=== PATIENT | female | born 1970 | race Caucasian/White ===

== ENCOUNTER → 2020-01-02 | Outpatient (CLI) | payer OTHER ==
[~2020-01-02] MED LIST: BLOOD PRESSURE; CITA20 PO; CODGUAEL PO; HYDR1TAB94 PO; LISINOPRIL; Percocet 5-3251 EACH PO; URSO300 PO; Zithromax250 MG PO
== END | disposition home or self-care (01) ==
LOC: LAB 13:53 → LAB SHORT 13:53
DX: L82.1 Other seborrheic keratosis (principal)
CPT/HCPCS: 88305

== ENCOUNTER 2020-02-04 15:03 | Inpatient (IN) | payer OTHER ==
[~2020-02-04] VITALS: Ht 154.9 cm; Wt 85.1 kg
[2020-02-05] MEDS ORDERED: Prinivil10 MG PO (11:33)
[2020-02-05] MEDS ORDERED: CITA20 PO (11:33)
[2020-02-05] MEDS ORDERED: VITAMIN B125000 MC1 PO (11:33)
[2020-02-05] MEDS ORDERED: CALCIUM 600 +1 EA11 PO (11:33)
[2020-02-05] MEDS ORDERED: FERSU300 PO (11:34)
[2020-02-05] MEDS ORDERED: NECON 1/35 PO (11:34)
[2020-02-05] MEDS ORDERED: VITAMIN D310 MC4 PO (11:43)
[2020-02-05] MEDS ORDERED: CENTRUM SILVER1 EAC2 PO (11:43)
--- NOTE | 2020-02-07 14:59 | NUR ---
tOOK OVER PATIENT CARE, AFTER REPORT WAS RECEIVED.
--- NOTE | 2020-02-07 21:36 | NUR ---
ASSUMED CARE AT 1915. PT RESTING IN BED WITH S/O AT BEDSIDE. PT REPORTS ONLY MILD DISCOMFORT TO ABD; RECENTLY MEDICATED FOR PAIN. K-PAD IN PLACE ON ABD. PT ABLE TO AMBULATE IN BEDROOM WITH RN, USING FWW FOR SUPPORT. TOLERATING PO INTAKE W/O NAUSEA. PATRICK IN PLACE, STAT LOCK ON. RESTING AT THIS TIME WITH CALL LIGHT IN REACH.
[2020-02-08 04:46] LABS: BASOPHILS ABSOLUTE AUTO 0.01 K/mm3 (0.00-0.23); BASOPHILS PERCENT AUTO 0 % (0-2); EOSINOPHILS PERCENT AUTO 0 % (0-6); Hematocrit 40.6 % (33.0-51.0); Hemoglobin 13.1 g/dL (11.5-16.0); IMMATURE GRAN ABSOLUTE AUTO 0.03 K/mm3 (0.00-0.10); IMMATURE GRAN PERCENT AUTO 0 % (0-1); LYMPHOCYTES ABSOLUTE AUTO 0.56 K/mm3 (0.84-5.20); LYMPHOCYTES PERCENT AUTO 5 % (21-46); MONOCYTES ABSOLUTE AUTO 0.55 K/mm3 (0.16-1.47); MONOCYTES PERCENT AUTO 5 % (4-13); Mean Corpuscular HGB 27.8 pg (26.0-34.0); Mean Corpuscular HGB Conc 32.3 g/dL (31.5-36.5); Mean Corpuscular Volume 86 fL (80-100); Mean Platelet Volume 11.2 fL (9.1-12.4); NEUTROPHILS ABSOLUTE AUTO 11.03 K/mm3 (1.96-9.15); NEUTROPHILS PERCENT AUTO 91 % (41-73); Platelet Count 201 K/mm3 (150-400); RDW Coefficient Variation 13.7 % (11.7-14.2); RDW Standard Deviation 43.8 fL (35.1-46.3); Red Blood Cell Count 4.71 M/mm3 (3.80-5.20); White Blood Cell Count 12.18 K/mm3 (4.00-11.30)
--- NOTE | 2020-02-08 05:27 | NUR ---
SHIFT SUMMARY PT A/O X4. REPOSITIONING SELF IN BED. PT HAS BEEN UP TO AMBULATE IN ROOM DURING THE SHIFT USING FWW FOR SUPPORT AND SBA. PAIN MANAGED WITH PO PAIN MED PER ORDERS. TOLERATING PO INTAKE WITH NO N/V. USING I/S WHEN AWAKE. PATRICK PATENT, STAT LOCK IN PLACE. PT RESTING WITH CALL LIGHT IN REACH AT THIS TIME.
--- NOTE | 2020-02-08 17:33 | NUR ---
SHIFT SUMMARY PT A&OX4, VSS, POD1 CHEO/BS, TRANSVERSE ABD INCISION CDI, PASSING FLATUS, VOIDING WELL. SCARLETT PO, DENIES N&V. PAIN MANAGED WITH 5 MG NORCO AND TORADOL. AMBULATING INDEPENDENTLY TO BRP AND IN HALLWAY. AT BEDSIDE. WILL REPORT TO ONCOMING RN.
--- NOTE | 2020-02-09 03:47 | NUR ---
SHIFT SUMMARY: POD 2 CHEO WITH SALPING PT IS ALERT AND ORIENTED X4 WHILE AWAKE BUT HAS BEEN SLEEPING MAJORITY OF THE SHIFT. PT IS EASILY AROUSABLE WHEN SLEEPING. VITAL SIGNS ARE WNL AND IS ON RA. TRANSCERSE ABD INCISION IS C/D/I, PASSING FLATUS, AND VOIDING. SHE TOLERATES PO INTAKE WITHOUT NAUSEA/VOMITING. PAIN IS MANAGED WITH ONE NORCO AND TYLENOL. SHE AMBULATES WELL WITHIN THE ROOM. CALLS APPROPRIATELY. SHE IS CURRENTLY LYING IN BED SLEEPING WITH CALL LIGHT IN REACH. THE PLAN IS TO BE DISCHARGED HOME TODAY.
--- NOTE | 2020-02-09 12:25 | NUR ---
DR. MARTINI SAW PT, PT READY FOR DISCHARGE. PACKET GIVEN AND PT EDUCATED. PT VERBALIZED UNDERSTANDING. LEFT UNIT AT ABOUT 1230 VIA WHEELCHAIR WITH SHASHI DANIELSON
== END 2020-02-09 12:30 | disposition home or self-care (01) | DRG 743 ==
LOC: SURS 02-07 10:58 → PRE IP 02-07 12:00 → SURS 02-07 18:12
PROVIDERS: Obstetrics & Gynecology; ADMIT Obstetrics & Gynecology
PROC: 0UT90ZZ Resection of Uterus, Open Approach (ICD-10-PCS; principal; 2020-02-07 12:00)
PROC: 0UT70ZZ Resection of Bilateral Fallopian Tubes, Open Approach (ICD-10-PCS; 2020-02-07 12:00)
PROC: 0UBK0ZZ Excision of Hymen, Open Approach (ICD-10-PCS; 2020-02-07 12:00)
DX: D25.9 Leiomyoma of uterus, unspecified (principal); N94.2 Vaginismus; N95.0 Postmenopausal bleeding; I10 Essential (primary) hypertension; E78.5 Hyperlipidemia, unspecified; E66.01 Morbid (severe) obesity due to excess calories; F41.9 Anxiety disorder, unspecified; F32.9 Major depressive disorder, single episode, unspecified; Z68.35 Body mass index [BMI] 35.0-35.9, adult
CPT/HCPCS: 36415; 85025; 88307; A9270; A9270-GY; J0690; J1100; J1885; J2250; J2370; J2405; J2704; J3010; J7120; Q0163

== ENCOUNTER → 2021-01-08 | Outpatient (CLI) | payer OTHER ==
[~2021-01-08] MED LIST changes: +CALCIUM 600 +1 EA11 PO; +CENTRUM SILVER1 EAC2 PO; +FERSU300 PO; +NECON 1/35 PO; +Prinivil10 MG PO; +VITAMIN B125000 MC1 PO; +VITAMIN D310 MC4 PO
== END | disposition home or self-care (01) ==
LOC: LAB 13:29 → LAB SHORT 13:29
DX: N61.1 Abscess of the breast and nipple (principal)
CPT/HCPCS: 87070; 87075; 87205

== ENCOUNTER → 2021-05-03 | Outpatient (CLI) | payer OTHER ==
[2021-05-03 11:37] LABS: BASOPHILS ABSOLUTE AUTO 0.05 K/mm3 (0.00-0.23); BASOPHILS PERCENT AUTO 1 % (0-2); EOSINOPHILS ABSOLUTE AUTO 0.24 K/mm3 (0.00-0.68); EOSINOPHILS PERCENT AUTO 3 % (0-6); Hemoglobin 15.1 g/dL (11.5-16.0); IMMATURE GRAN ABSOLUTE AUTO 0.03 K/mm3 (0.00-0.10); IMMATURE GRAN PERCENT AUTO 0 % (0-1); LYMPHOCYTES ABSOLUTE AUTO 1.32 K/mm3 (0.84-5.20); LYMPHOCYTES PERCENT AUTO 18 % (21-46); MONOCYTES ABSOLUTE AUTO 0.37 K/mm3 (0.16-1.47); MONOCYTES PERCENT AUTO 5 % (4-13); Mean Corpuscular HGB 29.4 pg (26.0-34.0); Mean Corpuscular HGB Conc 33.6 g/dL (31.5-36.5); Mean Corpuscular Volume 88 fL (80-100); Mean Platelet Volume 10.7 fL (9.1-12.4); NEUTROPHILS ABSOLUTE AUTO 5.41 K/mm3 (1.96-9.15); NEUTROPHILS PERCENT AUTO 73 % (41-73); Platelet Count 258 K/mm3 (150-400); RDW Coefficient Variation 12.6 % (11.7-14.2); RDW Standard Deviation 40.1 fL (35.1-46.3); Red Blood Cell Count 5.14 M/mm3 (3.80-5.20); White Blood Cell Count 7.42 K/mm3 (4.00-11.30)
[2021-05-03 12:17] LABS: Alanine Aminotransfer (ALT/SGP 108 U/L (12-78); Albumin, Blood 4.4 g/dL (3.4-5.0); Albumin/Globulin Ratio 1.2 (0.8-1.8); Alk Phos 56 U/L (50-136); Anion Gap 6 mmol/L (6-16); Aspartate Aminotrans (AST/SGOT 64 U/L (12-37); Bilirubin, Total 0.4 mg/dL (0.1-1.0); Blood Urea Nitrogen 8 mg/dL (8-24); Bun/Creatinine Ratio 10.9 (12.0-20.0); CO2, Blood 28 mmol/L (21-32); Calcium, Blood 9.1 mg/dL (8.5-10.1); Chloride, Blood 104 mmol/L (98-108); Creatinine, Blood 0.73 mg/dL (0.40-1.00); Globulin, Blood 3.6 g/dL (2.2-4.0); Glomerular Filtration Rate >60 (60-); Glucose, Blood 99 mg/dL (70-99); Sodium, Blood 138 mmol/L (136-145)
== END ==
LOC: LAB SHORT 11:33
PROVIDERS: Physician Assistant
DX: R19.7 Diarrhea, unspecified (principal)
CPT/HCPCS: 80053; 85025

== ENCOUNTER 2021-09-29 13:10 | Day surgery (SDC) | payer OTHER ==
[~2021-09-29] VITALS: Ht 154.9 cm; Wt 88.1 kg
[~2021-09-29 13:10] MED LIST changes: +VENL75ER PO
[2021-09-29] MEDS ORDERED: MONT10T (14:09)
[2021-09-29] MEDS ORDERED: Flonase 0.05% N16 GM (14:10)
== END 2021-09-29 15:33 | disposition home or self-care (01) ==
LOC: ORSCSDS 13:10
PROVIDERS: Surgery
PROC: 0DJD8ZZ Inspection of Lower Intestinal Tract, Via Natural or Artificial Opening Endoscopic (ICD-10-PCS; principal; 2021-09-29 14:15)
DX: Z12.11 Encounter for screening for malignant neoplasm of colon (principal); I10 Essential (primary) hypertension; E78.00 Pure hypercholesterolemia, unspecified; D64.9 Anemia, unspecified; F41.9 Anxiety disorder, unspecified; F32.A Depression, unspecified; E66.9 Obesity, unspecified; Z68.37 Body mass index [BMI] 37.0-37.9, adult; Z79.899 Other long term (current) drug therapy
CPT/HCPCS: J2704; J7120

== ENCOUNTER → 2022-04-16 | Outpatient (CLI) | payer OTHER ==
[~2022-04-16] MED LIST changes: +Flonase 0.05% N16 GM; +MONT10T
[2022-04-16 12:49] LABS: BASOPHILS ABSOLUTE AUTO 0.08 K/mm3 (0.00-0.23); BASOPHILS PERCENT AUTO 1 % (0-2); EOSINOPHILS ABSOLUTE AUTO 0.23 K/mm3 (0.00-0.68); EOSINOPHILS PERCENT AUTO 3 % (0-6); Hematocrit 43.4 % (33.0-51.0); IMMATURE GRAN ABSOLUTE AUTO 0.02 K/mm3 (0.00-0.10); IMMATURE GRAN PERCENT AUTO 0 % (0-1); LYMPHOCYTES ABSOLUTE AUTO 1.42 K/mm3 (0.84-5.20); LYMPHOCYTES PERCENT AUTO 19 % (21-46); MONOCYTES ABSOLUTE AUTO 0.43 K/mm3 (0.16-1.47); MONOCYTES PERCENT AUTO 6 % (4-13); Mean Corpuscular HGB 29.4 pg (26.0-34.0); Mean Corpuscular HGB Conc 34.6 g/dL (31.5-36.5); Mean Corpuscular Volume 85 fL (80-100); Mean Platelet Volume 11.4 fL (9.1-12.4); NEUTROPHILS ABSOLUTE AUTO 5.33 K/mm3 (1.96-9.15); NEUTROPHILS PERCENT AUTO 71 % (41-73); Platelet Count 239 K/mm3 (150-400); RDW Coefficient Variation 12.6 % (11.7-14.2); White Blood Cell Count 7.51 K/mm3 (4.00-11.30)
[2022-04-16 14:51] LABS: Alanine Aminotransfer (ALT/SGP 74 U/L (12-78); Albumin, Blood 4.1 g/dL (3.4-5.0); Albumin/Globulin Ratio 1.2 (0.8-1.8); Alk Phos 54 U/L (50-136); Anion Gap 5 mmol/L (6-16); Aspartate Aminotrans (AST/SGOT 40 U/L (12-37); Bilirubin, Total 0.3 mg/dL (0.1-1.0); Blood Urea Nitrogen 11 mg/dL (8-24); Bun/Creatinine Ratio 13.8 (12.0-20.0); CHOL/HDL RATIO 4.1; CO2, Blood 28 mmol/L (21-32); Calcium, Blood 9.3 mg/dL (8.5-10.1); Chloride, Blood 105 mmol/L (98-108); Cholesterol 181 mg/dL (50-200); Globulin, Blood 3.4 g/dL (2.2-4.0); Glomerular Filtration Rate 89 (60-); Glucose, Blood 107 mg/dL (70-99); HDL Cholesterol 44 mg/dL (>39); LDL/HDL RATIO 2.3; Low Density Lipoprotein Chol 99 mg/dL (0-110); Potassium, Blood 4.3 mmol/L (3.5-5.5); Sodium, Blood 138 mmol/L (136-145); Total Protein, Blood 7.5 g/dL (6.4-8.2); Triglycerides 190 mg/dL (30-160); Very Low Density Lipoprot Chol 38 mg/dL (6-32)
== END ==
LOC: LAB SHORT 11:23 → LAB 11:23
PROVIDERS: Family Medicine
DX: K76.0 Fatty (change of) liver, not elsewhere classified (principal); E78.5 Hyperlipidemia, unspecified; F41.8 Other specified anxiety disorders; E66.9 Obesity, unspecified
CPT/HCPCS: 36415; 80053; 80061; 83036; 85025

== ENCOUNTER 2023-09-26 21:07 | Emergency (ER) | payer OTHER ==
[~2023-09-26] VITALS: Ht 154.9 cm; Wt 89.4 kg
[2023-09-26 21:12] VITALS: BP 148/78
[2023-09-26] MEDS ORDERED: Diphth,Pertuss(Acell),Tet Vac 0.5 ML VIAL IM ONE (21:20)
== END 2023-09-26 23:32 | disposition home or self-care (01) ==
LOC: ER 21:07
DX: S61.212A Laceration without foreign body of right middle finger without damage to nail, initial encounter (principal); Z23 Encounter for immunization; W26.0XXA Contact with knife, initial encounter; Z88.0 Allergy status to penicillin; Z79.899 Other long term (current) drug therapy; I10 Essential (primary) hypertension
CPT/HCPCS: 12001; 90471; 90715; 99282-25